=== PATIENT | female | born 2000 | race Asian ===

== ENCOUNTER 2022-09-15 08:52 | Outpatient (CLI) | payer OTHER, SELFPAY ==
[2022-09-15 14:42] LABS: Chlamydia DNA Amplified* NOT DETECTED (No Detected); GC DNA Amplified* NOT DETECTED (No Detected)
== END 2022-09-15 08:53 | disposition home or self-care (01) ==
LOC: LKVREF 08:53
PROVIDERS: PCP Physician Assistant Medical; Visit Provider Physician Assistant Medical
DX: Z00.00 Encounter for general adult medical examination without abnormal findings (principal); Z11.3 Encounter for screening for infections with a predominantly sexual mode of transmission
CPT/HCPCS: 0353U

== ENCOUNTER 2022-09-30 09:00 | Outpatient (CLI) | payer OTHER, SELFPAY | END 2022-09-30 09:01 | disposition home or self-care (01) | LOC: NFLDREF 10-01 03:37 | PROVIDERS: PCP Physician Assistant Medical; Referring Provider Physician Assistant Medical; Visit Provider Physician Assistant Medical | DX: Z00.00 Encounter for general adult medical examination without abnormal findings (principal); Z13.6 Encounter for screening for cardiovascular disorders; Z13.1 Encounter for screening for diabetes mellitus; Z11.59 Encounter for screening for other viral diseases | CPT/HCPCS: 80061; 82947; 86592; 86703; 86803 ==

== ENCOUNTER 2022-10-15 09:33 | Outpatient (CLI) | payer OTHER, SELFPAY ==
[2022-10-15 15:09] LABS: Chlamydia DNA Amplified* NOT DETECTED (No Detected); GC DNA Amplified* NOT DETECTED (No Detected)
== END 2022-10-15 09:34 | disposition home or self-care (01) ==
PROVIDERS: PCP Physician Assistant Medical; Visit Provider Registered Nurse
DX: N89.8 Other specified noninflammatory disorders of vagina (principal)
CPT/HCPCS: 86694; 86695; 86696; 87491; 87591

== ENCOUNTER 2022-11-24 08:59 | Outpatient (CLI) | payer OTHER, SELFPAY ==
[2022-11-24 15:48] LABS: Chlamydia DNA Amplified* NOT DETECTED (No Detected); GC DNA Amplified* NOT DETECTED (No Detected)
== END 2022-11-24 09:00 | disposition home or self-care (01) ==
PROVIDERS: PCP Physician Assistant Medical; Visit Provider Physician Assistant Medical
DX: N76.0 Acute vaginitis (principal)
CPT/HCPCS: 87109; 87491; 87591

== ENCOUNTER 2023-01-27 10:26 | Outpatient (CLI) | payer OTHER, SELFPAY | END 2023-01-27 10:27 | disposition home or self-care (01) | LOC: NFLDREF 10:27 | PROVIDERS: PCP Physician Assistant Medical; Visit Provider Physician Assistant Medical | DX: O20.9 Hemorrhage in early pregnancy, unspecified (principal) | CPT/HCPCS: 84703 ==

== ENCOUNTER 2024-11-25 08:15 | Outpatient (CLI) | payer OTHER, SELFPAY | END 2024-11-25 08:16 | disposition home or self-care (01) | LOC: LKVREF 08:16 | PROVIDERS: PCP Physician Assistant Medical; Visit Provider Physician Assistant Medical | DX: Z00.00 Encounter for general adult medical examination without abnormal findings (principal); F41.9 Anxiety disorder, unspecified; Z13.6 Encounter for screening for cardiovascular disorders; Z13.1 Encounter for screening for diabetes mellitus | CPT/HCPCS: 82465; 82947; 84443 ==

== ENCOUNTER 2025-04-02 16:37 | Emergency (ER) | payer OTHER, SELFPAY ==
[2025-04-02 17:04] VITALS: BP 113/75; PULSE 90; RESP 20; TEMP 36.9; O2SAT 97; BMI 23.8
[2025-04-02 18:00] LABS: PCR FLU A Negative PCR FLU A (Negative); PCR FLU B Negative PCR FLU B (Negative); PCR RSV Negative PCR RSV (Negative); SARS PCR* Negative SARS-CoV-2 (Negative)
--- NOTE | 2025-04-02 18:10 | ED.GENADULT ---
HPI - General Adult General Chief complaint: Cough Stated complaint: respiratory sickness Time Seen by Provider: 04/02/25 16:38 History of Present Illness HPI narrative: This 24-year-old female comes in reporting 3 days of upper respiratory symptoms including cough which is harsh and causing chest discomfort when coughing. She also reports sore throat, nasal congestion, and states that she measured a fever on the 1st day of her symptoms. She arrives here with normal vital signs. Related Data Previous Rx's ?Medication ?Instructions ?Recorded acyclovir 800 mg tablet 800 mg PO TID PRN cold sores 2 11/25/24 days #18 tabs norethindrone 1.5 mg-ethinyl 1 tab PO QDAY #84 tabs 11/25/24 estradiol 30 mcg(21)/iron 75 mg(7) tablet (Junel FE 1.5/30 (28)) propranolol 10 mg tablet 10 - 20 mg (1 - 2 x 10 mg) PO BID 11/25/24 PRN anxiety #30 tabs escitalopram oxalate 5 mg tablet 5 mg PO QDAY #90 tabs 02/25/25 acetaminophen 300 mg-codeine 30 mg 1 tab PO Q6H PRN pain #15 tabs 04/02/25 tablet Allergies Allergy/AdvReac Type Severity Reaction Status Date / Time Cephalosporins Allergy Unknown Verified 04/02/25 17:06 Review of Systems Status of ROS: Reports: 10 or more systems reviewed and unremarkable except as noted in History and below Narrative: Constitutional: No fevers, no weight gain or loss. Eyes: No discharge. No vision changes. HENT: Nasal congestion and sore throat. Cardiovascular: No chest pain, no palpitations. Respiratory: No shortness of breath, no wheezes. Frequent harsh cough. Gastrointestinal: No abdominal pain, no vomiting, no diarrhea. Genitourinary: No dysuria, no hematuria. Musculoskeletal: Normal range of motion. Skin: No rashes, no pruritis. Neurological: No dizziness, weakness, sensory change, speech change. Endo/Heme/Allergies: No bruising or bleeding. No polydipsia. Pysch: no suicidality, no anxiety, no insomnia. All other systems reviewed and are negative. 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, unspecified, in remission (ICD-10) History of scoliosis ?Z87.39 - Personal history of other diseases of the musculoskeletal system and connective tissue (ICD-10) History of herpes genitalis ?Z86.19 - Personal history of other infectious and parasitic diseases (ICD-10) History of brain concussion (2011) ?Z87.820 - Personal history of traumatic brain injury (ICD-10) Surgical History (Updated 11/25/24 @ 08:47 by Oliva Hurst PA-C) History of wisdom tooth extraction ?K08.409 - Partial loss of teeth, unspecified cause, unspecified class (ICD-10) Hx of spinal fusion ?Z98.1 - Arthrodesis status (ICD-10) Social History (Updated 11/25/24 @ 10:57 by Corie Garibay ~ [facility]) Narrative: Adopted- [place]; family history unknown. E cigarette use, quitting 2024, using nicotine pouches. Occasional alcohol use. History of marijuana use She works as an real estate account executive. Significant other: Tip; day on a house in [place]; he has 3 yo son jhony What is your current living situation?: I presently have a place to live Problems where you live: no known problems In the past 12 months, utilities in danger of being shut off: no In past 12 months, lack of transportation kept you from medical appts, meetings, work, or getting things needed for daily living: no In the past 12 mos, have been you worried that your food would run out before you had money to buy more?: never true In the past 12 mos, the food you bought just didn't last and you didn't have money to buy more?: never true Smoking Status: Former smoker How often does anyone, including family, friends and others, physically hurt you: never How often does anyone, including family, friends and others, insult or talk down to you: never How often does anyone, including family, friends and others, threaten you with harm: never How often does anyone, including family, friends and others, scream or curse at you: never Exam Narrative: Exam Narrative: Constitutional: Well-developed, well-nourished, no acute distress. HEENT: Normocephalic, atraumatic. Pharyngeal erythema without exudate. Neck: Normal range of motion. Nontender. Supple. Heart: Regular. No murmurs. Normal rate. Intact distal pulses. Lungs: Clear to auscultation. No wheezes, rhonchi, or rales. Abdomen: Normal bowel sounds. Nontender. No rebound tenderness. Genitalia: Deferred. Back: No midline tenderness. Normal range of motion. Extremities: Normal range of motion. No injury. Skin: Intact. No rash. Warm. No erythema or pallor. Neurologic: No altered sensation. No weakness. Alert and oriented. Psychiatric: No suicidality. No anxiety or depression. No insomnia. Nursing notes and vitals signs are reviewed. Const: Vital Signs, click to edit/add: Vital Signs - 24 hr 04/02/25 17:04 Temperature 98.4 F Pulse Rate [Pulse Oximeter] 90 Respiratory Rate 20 Blood Pressure [Ri ght Upper Arm] 113/75 Pulse Oximetry 97 Oxygen Delivery Me thod Room Air Course Vital Signs Vital signs: Initial Vital Signs Temperature 98.4 F 04/02/25 17:04 Temperature Source Temporal Artery Scan 04/02/25 17:04 Pulse Rate 90 04/02/25 17:04 Respiratory Rate 20 04/02/25 17:04 Blood Pressure 113/75 04/02/25 17:04 Blood Pressure Mean 87 04/02/25 17:04 Blood Pressure Position Sitting 04/02/25 17:04 Pulse Oximetry 97 04/02/25 17:04 Oxygen Delivery Method Room Air 04/02/25 17:04 Vital Signs Temperature 98.4 F 04/02/25 17:04 Pulse Rate 90 04/02/25 17:04 Respiratory Rate 20 04/02/25 17:04 Blood Pressure 113/75 04/02/25 17:04 Pulse Oximetry 97 04/02/25 17:04 Oxygen Delivery Method Room Air 04/02/25 17:04 Temperature 98.4 F 04/02/25 17:04 Pulse Rate 90 04/02/25 17:04 Respiratory Rate 20 04/02/25 17:04 Blood Pressure 113/75 04/02/25 17:04 Pulse Oximetry 97 04/02/25 17:04 Oxygen Delivery Method Room Air 04/02/25 17:04 Medical Decision Making MDM Narrative Medical decision making narrative: This patient comes in with upper respiratory symptoms as described above. Nasal pharyngeal swab is negative for viruses tested. Her exam is normal as are her vital signs. Most likely this is a viral upper respiratory infection. The patient did receive an oral dose of dexamethasone 10 mg. I also provided a prescription for some tablets of Tylenol 3 for additional cough suppressant and pain relief benefit. I also reviewed [id number] medicines that may be taken. Lab Data Labs: Lab Results 04/02/25 Range/Units 17:05 SARS-CoV-2 (PCR) Negative SARS-CoV-2 (Negative) Influenza Type A (PCR) Negative PCR FLU A (Negative) Influenza Type B (PCR) Negative PCR FLU B (Negative) RSV (PCR) Negative PCR RSV (Negative) Discharge Plan Discharge Clinical Impression: Acute upper respiratory infection Patient Disposition: Home, Self-Care Condition: Stable Additional Instructions: Take medications as needed and directed. Follow up with MD return if symptoms are worsening. Prescriptions: New acetaminophen-codeine 300-30 mg tablet 1 tab PO Q6H PRN (Reason: pain) Qty: 15 0RF No Action norethindrone-e.estradiol-iron [5/ (28)] 1.5 mg-30 mcg (21)/75 mg (7) tablet 1 tab PO QDAY Qty: 84 3RF acyclovir 800 mg tablet 800 mg PO TID PRN (Reason: cold sores) 2 Days Qty: 18 1RF Rx Instructions: take one tablet three times per day x 2 days at start of ccold sore QTY = 3 episode supply propranolol 10 mg tablet 10 - 20 mg PO BID PRN (Reason: anxiety) Qty: 30 0RF Rx Instructions: 1-2 tablets twice daily as needed for increased anxiousness escitalopram oxalate 5 mg tablet 5 mg PO QDAY Qty: 90 0RF Rx Instructions: once daily Follow Up/Referrals: Oliva Hurst PA-C [Primary Care Provider, Family Practice] Stand Alone Forms: [email or web address] Info Instructions
== END 2025-04-02 18:26 | disposition home or self-care (01) ==
PROVIDERS: Emergency Provider Emergency Medicine Emergency Medical Services; PCP Physician Assistant Medical
DX: J06.9 Acute upper respiratory infection, unspecified (principal)
CPT/HCPCS: 87631; 99283; 99284; J1100